=== PATIENT | female | born 1995 | race African-American/Black ===

== ENCOUNTER 2016-12-31 01:11 | Emergency (ER) | payer SELFPAY ==
[~2016-12-31] VITALS: Ht 157.5 cm; Wt 54.0 kg
[2016-12-31] MEDS ORDERED: ONDANSETRON HCL 4MG/2ML VIAL IM ONE (02:45)
[2016-12-31] MEDS ORDERED: KETOROLAC 60MG/2ML VIAL IM ONE (02:45)
[2016-12-31] MEDS ORDERED: BACITRACIN ZINC 15GM TUBE TOP ONE (05:30)
[2016-12-31 05:39] VITALS: BP 106/74
== END 2016-12-31 05:43 | disposition home or self-care (01) ==
LOC: ER 01:11
DX: R11.2 Nausea with vomiting, unspecified (principal); R69 Illness, unspecified
CPT/HCPCS: 96372; 99284; J1885; J2405; Z7610